=== PATIENT | male | born 1945 | race Caucasian/White ===

== ENCOUNTER → 2018-01-10 | Day surgery (SDC) | payer OTHER ==
[2018-01-07 13:51] VITALS: BMI 26.0
[~2018-01-10] VITALS: Ht 185.4 cm; Wt 90.9 kg
[~2018-01-10] MED LIST: ASPI81TA28 PO; ATOR-22 PO; ATROPINE SULFATE 0.1 MG/ML 5ML SYR IV PRN; ENDOSCOPIC MARKER 5 ML SYR ONE; EpHEDrine SULFATE INJ 50 MG/ML AMP IV PRN; LIDOCAINE HCL 2% 2 ML VIAL (20MG/ML) ONE; LISI-461 PO; METO25TA56 PO; SODIUM CHLORIDE 0.9% 500ML 500 ML IV ONE
[2018-01-10 09:12] VITALS: Ht 185.4 cm; Wt 90.9 kg
--- NOTE | 2018-01-10 09:30 | Endo History and Physical ---
History & Physical Date of Service: Jan 10, 2018. Chief Complaint: ABNORMAL FINDINGS ON DIAGNOSTIC IMAGING OF ABDOMEN REGION Referring Physician: DR MERLE KNOWLES History of Present Illness 72 yo CM who presents for colonoscopy secondary to abnormal abdominal CT scan. Past Surgical History Hx Cardiac Surgery: Yes (heart cath with one stent) Hx Internal Defibrillator: No Hx Pacemaker: No Hx Abdominal Surgery: Yes (appy, hernia repair) Hx of Implantable Prosthesis: No Hx Post-Op Nausea and Vomiting: No Hx Cancer Surgery: No Hx Thoracic Surgery: No Hx Orthopedic: Yes (right and left eloise(x2), left shoulder rcr) Hx Urinary Tract Surgery: No Family History None Social History Smoking Status: Never Smoker Hx Substance Use: No Hx Alcohol Use: Yes (1 -2 DRINKS DAILY) Allergies Coded Allergies: No Known Allergies (Unverified , 01/10/18) Current Medications Reported Home Medications Medications Dose Route/Sig Max Daily Dose Days Date Category Aspirin Ec (Aspirin) 81 Mg Tab 81 Mg PO DAILY 01/07/18 Reported Zestril (Lisinopril) 10 Mg Tab 10 Mg PO QAM 01/07/18 Reported Lipitor (Atorvastatin Calcium) 20 Mg Tab 20 Mg PO HS 01/07/18 Reported Lopressor (Metoprolol Tartrate) 25 Mg Tab 25 Mg PO BID 01/07/18 Reported Vital Signs Weight (Kilograms): 90.91 Height (Feet): 6 Height (Inches): 1 Date Time Temp Pulse Resp B/P (MAP) Pulse Ox O2 Delivery O2 Flow Rate FiO2 01/10/18 09:11 36.6 64 18 162/81 (108) 98 Room Air Physical Exam General Appearance: WD/WN, no apparent distress Respiratory/Chest: Auscultation: breath sounds normal Cardiovascular: Heart Auscultation: RRR Abdomen: Bowel Sounds: normal Inspection & Palpation: soft, non-distended, no tenderness, guarding & rebound Assessment and Plan Assessment: 72 yo CM who presents for colonoscopy secondary to abnormal abdominal CT scan. Plan: Proceed with colonoscopy.
--- NOTE | 2018-01-10 10:01 | GI REPORT ---
Procedure Date: 01/10/2018 9:37 AM Procedure: Colonoscopy Indications: Abnormal CT of the GI tract Medicines: Monitored Anesthesia Care Complications: No immediate complications. Estimated Blood Loss: Estimated blood loss: none. Procedure: Pre-Anesthesia Assessment: - Prior to the procedure, a History and Physical was performed, and patient medications and allergies were reviewed. The patient's tolerance of previous anesthesia was also reviewed. The risks and benefits of the procedure and the sedation options and risks were discussed with the patient. All questions were answered, and informed consent was obtained. Prior Anticoagulants: The patient has taken aspirin, last dose was day of procedure. ASA Grade Assessment: III - A patient with severe systemic disease. After reviewing the risks and benefits, the patient was deemed in satisfactory condition to undergo the procedure. After I obtained informed consent, the scope was passed under direct vision. Throughout the procedure, the patient's blood pressure, pulse, and oxygen saturations were monitored continuously. The scope was introduced through the anus and advanced to the terminal ileum. The colonoscopy was performed without difficulty. The patient tolerated the procedure well. The quality of the bowel preparation was good. The terminal ileum, ileocecal valve, appendiceal orifice, and rectum were photographed. Findings: The perianal and digital rectal examinations were normal. An infiltrative partially obstructing large mass was found in the ascending colon. The mass was circumferential. In addition, its diameter measured thirty mm. Oozing was present. Area was tattooed with an injection of 5 mL of Renu ink. Biopsies were taken with a cold forceps for histology. Non-bleeding internal hemorrhoids were found during retroflexion. The hemorrhoids were medium-sized. 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 Tattooed. Biopsied. - Non-bleeding internal hemorrhoids. Recommendation: - Resume previous diet. - Continue present medications. - Repeat colonoscopy date to be determined after pending pathology results are reviewed for surveillance based on pathology results. - Refer to a surgeon at appointment to be scheduled. - Return to primary care physician as previously scheduled. Ernesto Wayne DO 01/10/2018 10:00:51 AM This report has been signed electronically. Note Initiated On: 01/10/2018 9:37 AM I attest to the content of the Intraoperative Record and orders documented therein, exceptions below
--- NOTE | 2018-01-10 10:02 | Discharge Instructions ---
Endoscopy Patient Instructions Date / Procedure(s) Performed Jan 10, 2018. Colonoscopy Allergy Information Coded Allergies: No Known Allergies (Unverified , 01/10/18) Discharge Date / Findings Jan 10, 2018. Ascending colon mass s/p biopsies and Renu Ink Tattoo Internal hemorrhoids Medication Instructions Stopped Medication(s): TAKES ASPIRIN DAILY- LAST DOSE 01/10/18 OK to resume all medications today as prescribed Reported Home Medications Medications Dose Route/Sig Max Daily Dose Days Date Category Aspirin Ec (Aspirin) 81 Mg Tab 81 Mg PO DAILY 01/07/18 Reported Zestril (Lisinopril) 10 Mg Tab 10 Mg PO QAM 01/07/18 Reported Lipitor (Atorvastatin Calcium) 20 Mg Tab 20 Mg PO HS 01/07/18 Reported Lopressor (Metoprolol Tartrate) 25 Mg Tab 25 Mg PO BID 01/07/18 Reported Provider Instructions Activity Restrictions - No exercising or heavy lifting for 24 hours. - Do not drink alcohol the day of the procedure. - Do not drive a car or operate machinery until the day after the procedure. - Do not make any important decisions or sign important papers in 24 hours after the procedure. Following Day: - Return to full activity which may include returning to work/school. Diet Start your diet with liquids and light foods (jello, soup, juice, toast). Then eat your usual diet if not nauseated. Treatment For Common After Affects For mild abdominal pain, bloating, or excessive gas: - Rest - Eat lightly - Lie on right side Follow-Up Information Follow-up with DR MERLE KNOWLES as scheduled Anesthesia Information What You Should Know You have had a procedure that required some medicine to reduce anxiety and discomfort. This treatment is called moderate sedation. After receiving the treatment, you may be sleepy, but you will be able to breathe on your own. The effects of the treatment may last for several hours. Follow these instructions along with Activity/Diet recommendations noted above: * Do NOT do anything where dizziness or clumsiness would be dangerous. * Rest quietly at home today, then you can be up and about tomorrow. * Have a responsible person stay with you the rest of today. * You may have had an I.V. today. If so, you may take the dressing off later today. Recommendations Call your doctor if: * Trouble breathing * Continuous vomiting for more than 24 hours * Temperature above 101 degrees * Severe abdominal pain or bloating * Pain not relieved by pain medicine ordered * There is increased drainage or redness from any incision * A large amount of rectal bleeding greater than 2-3 tablespoons. (If you had a polyp/s removed or have hemorrhoids, a small amount of blood - from the rectum is to be expected.) * You have any unanswered questions or concerns. IN THE EVENT OF A SERIOUS EMERGENCY, GO TO THE NEAREST EMERGENCY ROOM Your discharge instructions were prepared by provider Ernesto Wayne. Patient Instructions Signature Page Savage Blackwell Patient (or Guardian) Signature/Date: I have read and understand the instructions given to me by my caregivers. Caregiver/RN/Doctor Signature/Date: The above-named patient and/or guardian has received patient instructions on this date. + Original Patient Signature Page (only) stays with chart. Please make copy for patient.
--- NOTE | 2018-01-10 10:19 | Anesthesiology Progress Note ---
Anesthesia Post Op Note Date & Time Jan 10, 2018 at 10:19 Vital Signs Pain Intensity: 0 Vital Signs Past 12 Hours Date Time Temp Pulse Resp B/P (MAP) Pulse Ox O2 Delivery O2 Flow Rate FiO2 01/10/18 10:15 63 98 98/59 (72) 95 Room Air 01/10/18 10:00 36.0 69 16 96/54 (68) 94 Room Air 01/10/18 09:11 36.6 64 18 162/81 (108) 98 Room Air Notes Mental Status: alert / awake / arousable, participated in evaluation Pt Amnestic to Procedure: Yes Nausea / Vomiting: adequately controlled Pain: adequately controlled Airway Patency, RR, SpO2: stable & adequate BP & HR: stable & adequate Hydration State: stable & adequate Anesthetic Complications: no major complications apparent
[2018-01-10 10:30] VITALS: BP 132/65; PULSE 56; O2SAT 98
[2018-01-10 12:21] LABS: BASO % 0.5 %; BASO ABS # 0.03 K/uL (0-0.2); EOS % 3.4 %; EOS ABS # 0.22 K/uL (0-0.5); HEMATOCRIT 39.8 % (42-52); HEMOGLOBIN 13.3 g/dL (14.0-18.0); IG# 0.02 K/uL (0.00-0.02); LYMPH % 23.5 %; MEAN CELL VOLUME 101.5 fL (80-100); MEAN CORPUSCULAR HEMOGLOBIN 33.9 pg (25-34); MEAN CORPUSCULAR HGB CONC 33.4 g/dl (32-36); MEAN PLATELET VOLUME 9.2 fL (7.4-10.4); MONO % 8.5 %; MONO ABS # 0.54 K/uL (0.11-0.59); NEUT % 63.8 %; NEUT ABS # 4.08 K/uL (1.4-6.5); PLATELET COUNT 283 K/uL (130-400); RED CELL DISTRIBUTION WIDTH CV 13.3 % (11.5-14.5); RED CELL DISTRIBUTION WIDTH SD 48.8 fL (36.4-46.3); WHITE BLOOD COUNT 6.39 K/uL (4.8-10.8)
[2018-01-10 12:42] LABS: ALBUMIN 3.5 gm/dl (3.4-5.0); CALCIUM 9.1 mg/dl (8.5-10.1); CREATININE 1.04 mg/dl (0.60-1.40); POTASSIUM 4.4 mmol/L (3.5-5.1)
[2018-01-10 12:44] LABS: TOTAL PROTEIN 7.1 gm/dl (6.4-8.2)
== END | disposition home or self-care (01) ==
LOC: C.GI 08:41
PROVIDERS: ATTEND Internal Medicine
DX: C18.2 Malignant neoplasm of ascending colon (principal); R93.5 Abnormal findings on diagnostic imaging of other abdominal regions, including retroperitoneum; K64.8 Other hemorrhoids; Z95.5 Presence of coronary angioplasty implant and graft; Z96.643 Presence of artificial hip joint, bilateral; Z79.82 Long term (current) use of aspirin; Z79.899 Other long term (current) drug therapy

== ENCOUNTER → 2018-01-12 | Outpatient (CLI) | payer OTHER ==
[~2018-01-12] MED LIST changes: -ATROPINE SULFATE 0.1 MG/ML 5ML SYR IV PRN; -ENDOSCOPIC MARKER 5 ML SYR ONE; -EpHEDrine SULFATE INJ 50 MG/ML AMP IV PRN; -LIDOCAINE HCL 2% 2 ML VIAL (20MG/ML) ONE; +OPTIRAY 320 IV PRN; -SODIUM CHLORIDE 0.9% 500ML 500 ML IV ONE
--- NOTE | 2018-01-12 13:54 | DIAGNOSTIC IMAGING REPORT ---
CT OF THE CHEST WITH IV CONTRAST CLINICAL HISTORY: Mass of colon. COMPARISON STUDY: No previous studies for comparison. TECHNIQUE: Following IV administration of 83 mL of Optiray-320, helical axial images of the chest were obtained. Sagittal and coronal reconstructions were viewed as well as maximal intensity projections on an independent 3-D workstation. A dose lowering technique was utilized adhering to the principles of ALARA. CT DOSE: 695.77 mGycm FINDINGS: No enlarged axillary, mediastinal or hilar lymph nodes are present. The size of the heart is normal. There is moderate coronary artery calcification. There is no pericardial effusion. There are no suspicious pulmonary nodules. Linear opacities reflect atelectasis or scarring. There is no consolidation. No pneumothorax or pleural effusion is noted. A few tiny perifissural nodules along the left major fissure are benign. No suspicious osseous lesion is present. Visualized portions of the upper abdomen are unremarkable. IMPRESSION: 1. No evidence of metastatic disease within the chest. 2. Moderate coronary artery calcification. Electronically signed by: Donny Palacios M.D. 01/12/2018 1:52 PM Dictated Date/Time: 01/12/2018 1:32 PM
== END | disposition home or self-care (01) ==
LOC: C.CTS 12:57
PROVIDERS: ATTEND Internal Medicine
DX: K63.9 Disease of intestine, unspecified (principal)

== ENCOUNTER → 2018-01-19 | Outpatient (CLI) | payer OTHER ==
[~2018-01-19] MED LIST changes: -OPTIRAY 320 IV PRN
== END | disposition home or self-care (01) ==
LOC: C.CPL 11:41
PROVIDERS: ATTEND Surgery
DX: Z01.810 Encounter for preprocedural cardiovascular examination (principal)

== ENCOUNTER 2018-01-25 07:41 | Inpatient (IN) | payer OTHER ==
[2018-01-21 12:04] VITALS: Ht 188 cm; Wt 92.0 kg
[~2018-01-25] VITALS: Ht 188 cm; Wt 92.0 kg
[2018-01-25] VITALS (9 sets, daily range): BP systolic 126–156; BP diastolic 69–84; PULSE 72–84; TEMP 36.4–36.7; O2SAT 93–98
[~2018-01-25 07:41] MED LIST changes: +ACETAMINOPHEN 1000 MG/100 ML IV IV ONE; +CEFAZOLIN 2000MG IV PUSH 15 ML IV SCH; +HEPARIN SOD 5000 UNIT/0.5 ML CARP SQ SCH; +LACTATED RINGER'S 1000ML 1,000 ML IV SCH
[2018-01-25] MEDS ORDERED: FENTANYL CITRATE INJ 50 MCG/1 ML 2 ML VIAL IV PRN (09:00)
[2018-01-25] MEDS ORDERED: HYDROmorphone INJ 1 MG/ML SYR IV PRN (09:00)
[2018-01-25] MEDS ORDERED: EpHEDrine SULFATE INJ 50 MG/ML AMP IV PRN (09:00)
[2018-01-25] MEDS ORDERED: ONDANSETRON INJ 2 MG/ML 2 ML VIAL IV PRN (09:00)
[2018-01-25] MEDS ORDERED: ATROPINE SULFATE 0.1 MG/ML 5ML SYR IV PRN (09:00)
[2018-01-25] MEDS ORDERED: DEXAMETHASONE SOD INJ 4 MG/ML VIAL ONE (09:57)
[2018-01-25] MEDS ORDERED: PROPOFOL IV EMULSION 10 MG/ML 20 ML VIAL IV ONE (09:57)
[2018-01-25] MEDS ORDERED: LIDOCAINE HCL 2% 2 ML VIAL (20MG/ML) ONE (09:57)
[2018-01-25] MEDS ORDERED: ONDANSETRON INJ 2 MG/ML 2 ML VIAL ONE (09:57)
[2018-01-25] MEDS ORDERED: FENTANYL CITRATE INJ 50 MCG/1 ML 2 ML VIAL ONE ×5 (09:58→14:50)
[2018-01-25] MEDS ORDERED: HYDROmorphone INJ 2 MG/ML SYR/VIAL ONE (09:58)
[2018-01-25] MEDS ORDERED: SODIUM CHLORIDE 0.9% INJ 10 ML VIAL ONE (09:59)
[2018-01-25] MEDS ORDERED: BUPIVACAINE/EPINEPHRINE 0.5% MPF 1:200,000 30 ML VIAL ONE (10:12)
--- NOTE | 2018-01-25 10:30 | History & Physical Bridge Note ---
H&P Re-Evaluation Bridge Note: I have examined the patient, reviewed the History & Physical and in the interval since the performance of the History & Physical I have noted the following changes of clinical significance: No changes noted
[2018-01-25] MEDS ORDERED: KETAMINE HCL INJ 50 MG/ML 10 ML VIAL ONE (11:40)
[2018-01-25] MEDS ORDERED: MIDAZOLAM HCL 1 MG/ML 2ML VIAL ONE (11:41)
[2018-01-25] MEDS ORDERED: LABETALOL HCL IV 5 MG/ML 20ML IV ONE (11:45)
[2018-01-25] MEDS ORDERED: ROCURONIUM BROMIDE 10 MG/ML 5 ML VIAL IV ONE (13:38)
[2018-01-25] MEDS ORDERED: GLYCOPYRROLATE INJ 0.2 MG/ML VIAL ONE (13:39)
[2018-01-25] MEDS ORDERED: NEOSTIGMINE METHYLSULFATE 5 MG/5 ML SYR ONE (13:39)
--- NOTE | 2018-01-25 14:23 | [facility] Post Operative Brief Note ---
Immediate Operative Summary Operative Date Jan 25, 2018. Pre-Operative Diagnosis colon cancer Post-Operative Diagnosis same with umbilical hernia Procedure(s) Performed laparoscopic extended right hemicolectomy; repair of umbilical hernia Surgeon khadijah Sustainability Project Coordinator Surgeon(s) chandni Estimated Blood Loss approx 200 cc Findings Consistent with Post-Op Diagnosis Specimens right colon/cecum/portionof transverse colon Complication(s) none
[2018-01-25] MEDS ORDERED: HydrALAZINE HCL 20 MG/ML VIAL ONE (15:23)
[2018-01-25] MEDS ORDERED: HydrALAZINE HCL 20 MG/ML VIAL IV. ONE (15:30)
--- NOTE | 2018-01-25 15:50 | Anesthesiology Progress Note ---
Anesthesia Post Op Note Date & Time Jan 25, 2018 at 15:49 Vital Signs Pain Intensity: 4 Vital Signs Past 12 Hours Date Time Temp Pulse Resp B/P (MAP) Pulse Ox O2 Delivery O2 Flow Rate FiO2 01/25/18 15:42 149/80 01/25/18 15:39 74 20 01/25/18 15:39 74 20 97 01/25/18 15:37 153/79 01/25/18 15:34 75 23 01/25/18 15:34 75 23 97 01/25/18 15:32 158/102 01/25/18 15:29 74 20 01/25/18 15:29 73 20 98 01/25/18 15:27 168/88 01/25/18 15:24 70 18 97 01/25/18 15:24 70 18 01/25/18 15:22 180/81 01/25/18 15:19 71 10 01/25/18 15:19 71 10 98 01/25/18 15:18 71 18 97 01/25/18 15:18 71 18 01/25/18 15:17 183/96 01/25/18 15:16 81 17 01/25/18 15:16 75 17 89 01/25/18 15:12 199/97 01/25/18 15:11 75 15 98 01/25/18 15:11 74 15 01/25/18 15:07 162/95 01/25/18 15:06 57 18 01/25/18 15:06 69 18 01/25/18 15:05 63 10 01/25/18 15:05 61 10 100 01/25/18 15:01 176/100 01/25/18 15:00 66 18 99 01/25/18 15:00 67 18 01/25/18 14:56 188/105 01/25/18 14:55 76 15 01/25/18 14:55 76 15 100 01/25/18 14:53 182/95 01/25/18 14:50 90 18 01/25/18 14:50 86 18 100 01/25/18 14:49 202/109 01/25/18 14:46 195/100 01/25/18 14:45 86 14 01/25/18 14:45 36.0 82 18 200/110 96 Oxymask 10 01/25/18 14:45 87 14 99 01/25/18 08:19 36.6 72 18 153/78 98 Room Air Notes Mental Status: alert / awake / arousable, participated in evaluation Pt Amnestic to Procedure: Yes Nausea / Vomiting: adequately controlled Pain: adequately controlled Airway Patency, RR, SpO2: stable & adequate BP & HR: stable & adequate Hydration State: stable & adequate Anesthetic Complications: no major complications apparent Doing well. BP better controlled after IV Hydralazine.
[2018-01-25] MEDS: LACTATED RINGER'S 1000ML 1,000 ML IV SCH ×2 (17:30→23:46)
[2018-01-25 17:34] LABS: HEMOGLOBIN 13.2 g/dL (14.0-18.0); MEAN CELL VOLUME 99.5 fL (80-100); MEAN CORPUSCULAR HEMOGLOBIN 33.7 pg (25-34); MEAN CORPUSCULAR HGB CONC 33.8 g/dl (32-36); MEAN PLATELET VOLUME 9.1 fL (7.4-10.4); PLATELET COUNT 276 K/uL (130-400); RED CELL DISTRIBUTION WIDTH CV 12.9 % (11.5-14.5); WHITE BLOOD COUNT 11.68 K/uL (4.8-10.8)
[2018-01-25 17:51] LABS: CREATININE 1.08 mg/dl (0.60-1.40)
[2018-01-25] MEDS: MoRPHine SULFATE 4 MG/ML 1 ML CARP\\VIAL IV PRN ×2 (20:03→22:10)
[2018-01-25] MEDS: METOPROLOL TARTRATE 25 MG TAB PO SCH (21:36)
[2018-01-25] MEDS: ACETAMINOPHEN IV 100 ML IV SCH (21:37)
[2018-01-26 04:01] VITALS: BP 166/77; PULSE 79; TEMP 36.7; O2SAT 94
[2018-01-26] MEDS: ACETAMINOPHEN IV 100 ML IV SCH ×3 (05:35→21:15)
[2018-01-26] MEDS: LACTATED RINGER'S 1000ML 1,000 ML IV SCH ×2 (07:36→16:28)
[2018-01-26 07:38] VITALS: BP 160/70; PULSE 70; TEMP 36.8; O2SAT 95
[2018-01-26] MEDS: METOPROLOL TARTRATE 25 MG TAB PO SCH ×2 (07:44→21:15)
[2018-01-26] MEDS: ENOXAPARIN 40 MG/0.4 ML SYR SQ SCH (07:44)
--- NOTE | 2018-01-26 07:45 | Surgery Progress Note ---
Surgery Progress Note Date of Service Jan 26, 2018. Subjective Post OP Day: 1 + feeling well some gas pain. overall feeling well. has been out of bed ambulating already. Objective Vital Signs: Date Time Temp Pulse Resp B/P (MAP) Pulse Ox O2 Delivery O2 Flow Rate FiO2 01/26/18 07:38 36.8 70 15 160/70 (100) 95 Room Air 01/26/18 04:01 36.7 79 16 166/77 (106) 94 Room Air 01/25/18 23:50 Room Air 01/25/18 22:59 36.7 84 16 126/72 (90) 93 Room Air 01/25/18 21:39 84 126/69 (88) 01/25/18 19:53 36.6 80 18 129/73 (91) 96 Nasal Cannula 2.0 01/25/18 18:50 36.6 83 18 151/78 (102) 94 Nasal Cannula 2.0 01/25/18 17:56 36.4 78 18 137/72 (93) 96 Nasal Cannula 2.0 01/25/18 17:20 36.5 81 18 156/84 (108) 96 Nasal Cannula 2.0 01/25/18 16:50 36.5 76 19 150/77 (101) 95 Nasal Cannula 2.0 01/25/18 16:34 75 22 01/25/18 16:34 75 22 96 01/25/18 16:31 150/75 01/25/18 16:29 67 20 95 01/25/18 16:29 67 20 01/25/18 16:27 151/77 01/25/18 16:24 77 26 01/25/18 16:24 77 26 96 01/25/18 16:21 158/83 01/25/18 16:19 74 23 01/25/18 16:19 73 23 96 01/25/18 16:16 145/84 01/25/18 16:14 77 16 01/25/18 16:14 77 16 97 01/25/18 16:12 140/74 01/25/18 16:09 74 25 01/25/18 16:09 75 25 96 01/25/18 16:08 78 22 01/25/18 16:08 77 22 96 01/25/18 16:07 159/81 01/25/18 16:04 36.3 69 22 140/74 (109) 97 Nasal Cannula 2 01/25/18 16:03 68 23 01/25/18 16:03 68 23 96 01/25/18 16:02 149/118 01/25/18 15:58 73 24 96 01/25/18 15:58 72 24 01/25/18 15:57 152/67 01/25/18 15:53 78 19 01/25/18 15:53 78 19 96 01/25/18 15:52 139/92 01/25/18 15:48 71 24 01/25/18 15:48 71 24 96 01/25/18 15:47 156/79 01/25/18 15:43 64 16 95 01/25/18 15:43 64 16 01/25/18 15:42 149/80 01/25/18 15:39 74 20 01/25/18 15:39 74 20 97 01/25/18 15:37 153/79 01/25/18 15:34 75 23 01/25/18 15:34 75 23 97 01/25/18 15:32 158/102 01/25/18 15:29 74 20 01/25/18 15:29 73 20 98 01/25/18 15:27 168/88 01/25/18 15:24 70 18 97 01/25/18 15:24 70 18 01/25/18 15:22 180/81 01/25/18 15:19 71 10 01/25/18 15:19 71 10 98 01/25/18 15:18 71 18 97 01/25/18 15:18 71 18 01/25/18 15:17 183/96 01/25/18 15:16 81 17 01/25/18 15:16 75 17 89 01/25/18 15:12 199/97 01/25/18 15:11 75 15 98 01/25/18 15:11 74 15 01/25/18 15:10 95 Nasal Cannula 2.0 01/25/18 15:07 162/95 01/25/18 15:06 57 18 01/25/18 15:06 69 18 01/25/18 15:05 63 10 01/25/18 15:05 61 10 100 01/25/18 15:01 176/100 01/25/18 15:00 66 18 99 01/25/18 15:00 67 18 01/25/18 14:56 188/105 01/25/18 14:55 76 15 01/25/18 14:55 76 15 100 01/25/18 14:53 182/95 01/25/18 14:50 90 18 01/25/18 14:50 86 18 100 01/25/18 14:49 202/109 01/25/18 14:46 195/100 01/25/18 14:45 86 14 01/25/18 14:45 36.0 82 18 200/110 96 Oxymask 10 01/25/18 14:45 87 14 99 01/25/18 08:19 36.6 72 18 153/78 98 Room Air Physical Exam: NICOLAS drainage (serous) General Appearance: no apparent distress Abdomen: non distended, soft Incision(s): clean, dry, no erythema Laboratory Results: Results Past 24 Hours Test 01/25/18 17:15 01/26/18 04:44 Range/Units White Blood Count 11.68 4.8-10.8 K/uL Red Blood Count 3.92 4.7-6.1 M/uL Hemoglobin 13.2 14.0-18.0 g/dL Hematocrit 39.0 42-52 % Mean Corpuscular Volume 99.5 80-100 fL Mean Corpuscular Hemoglobin 33.7 25-34 pg Mean Corpuscular Hemoglobin Concent 33.8 32-36 g/dl RDW Standard Deviation 47.0 36.4-46.3 fL RDW Coefficient of Variation 12.9 11.5-14.5 % Platelet Count 276 130-400 K/uL Mean Platelet Volume 9.1 7.4-10.4 fL Prothrombin Time 10.8 9.0-12.0 SECONDS Prothromb Time International Ratio 1.0 0.9-1.1 Creatinine 1.08 0.60-1.40 mg/dl Est Creatinine Clear Calc Drug Dose 70.9 ml/min Estimated GFR () 78.5 Estimated GFR (Non- 67.7 Assessment & Plan colon ca s/p lap right extended hemicolectomy no acute issues so far d/c saenz may have some clears
[2018-01-26 07:50] VITALS: O2SAT 95
[2018-01-26 08:27] LABS: BASO % 0.1 %; BASO ABS # 0.01 K/uL (0-0.2); HEMATOCRIT 33.9 % (42-52); HEMOGLOBIN 11.7 g/dL (14.0-18.0); IG# 0.03 K/uL (0.00-0.02); LYMPH % 10.1 %; LYMPH ABS # 0.99 K/uL (1.2-3.4); MEAN CORPUSCULAR HEMOGLOBIN 34.5 pg (25-34); MEAN CORPUSCULAR HGB CONC 34.5 g/dl (32-36); MONO ABS # 0.88 K/uL (0.11-0.59); NEUT % 80.5 %; NEUT ABS # 7.87 K/uL (1.4-6.5); PLATELET COUNT 267 K/uL (130-400); RED CELL DISTRIBUTION WIDTH CV 13.1 % (11.5-14.5); RED CELL DISTRIBUTION WIDTH SD 47.5 fL (36.4-46.3); WHITE BLOOD COUNT 9.78 K/uL (4.8-10.8)
[2018-01-26 09:00] LABS: CALCIUM 8.3 mg/dl (8.5-10.1); CREATININE 1.11 mg/dl (0.60-1.40); POTASSIUM 4.2 mmol/L (3.5-5.1)
[2018-01-26] MEDS: MoRPHine SULFATE 4 MG/ML 1 ML CARP\\VIAL IV PRN ×2 (10:15→16:27)
--- NOTE | 2018-01-26 11:10 | [facility] Operative Report ---
Operative Report Operative Date Jan 26, 2018. Pre-Operative Diagnosis colon cancer Post-Operative Diagnosis colon cancer; umbilical hernia Procedure(s) Performed Laparoscopic Extended Right Hemicolectomy and Repair of Umbilical Hernia Surgeon Dr. Jr Pearson Forming Fixer Surgeon(s) Ramon Mederos PA-C Estimated Blood Loss 200ml Specimens A.) cecum, right colon, proximal transverse colon Drains NICOLAS into right lower quadrant Anesthesia Type General Complication(s) none Description of Procedure After informed consent was obtained the patient was taken to the operating room and placed in a supine position. After successful intubation a Siddiqui catheter was placed and the left arm was tucked. The patient had a small umbilical hernia. We decided to make a small incision directly above this which we carried down through the soft tissue. I was then able to manually reduce incarcerated preperitoneal fat from the hernia defect and excise it. We then extended the defect slightly using electrocautery. 2 #0 Vicryl stay sutures were placed in the edges of the hernia and the peritoneum was entered using blunt finger penetration and a finger sweep performed. A 12 mm Matthews trocar was placed through the defect and the abdomen insufflated 20 mmHg. The laparoscope was inserted and the abdomen was examined in 360. We saw no gross abnormalities. No evidence of metastatic disease on any of the peritoneal surfaces or liver. I then placed a suprapubic 5 mm trocar as well as a left lower quadrant 12 mm trocar. Eventually I would place an upper midline 5 mm trocar which we would then extend to to deliver the specimen. I began by evaluating the right colon and mobilizing it. We are able to elevate the omentum and find the tattoo ink which was just on the transverse colon side of the hepatic flexure. There was some omentum stuck down in the right lower quadrant which we had to free up using the harmonic scalpel. I also had to free up the terminal small bowel which was stuck to the right lower quadrant sidewall again using a harmonic scalpel and traction/ countertraction. I began by coming up the white line of Toldt laterally on the right colon up to the hepatic flexure. I then divided some of the omentum exposing the transverse colon. I found a place on the hepatic side of the middle colic vessels and create a small window in the mesentery of the transverse colon. A URBANO 60 mm purple stapler was used to transect the colon in this area. I then used a harmonic scalpel to be the begin taking down the mesentery of the transverse colon towards the hepatic flexure. Once visualization became difficult I then went down to the terminal ileum and created a small window in the mesentery of the terminal ileum just proximal to the ileocecal valve and transected this using a brown cartridge URBANO linear stapler. I then used a harmonic scalpel and started on the mesentery of the terminal ileum and right colon and went superiorly until I was able to meet with my previous takedown of the transverse colon mesentery. I did take down some additional attachments to the omentum as well as the gastrocolic ligament which I had to takedown using the harmonic scalpel as well. Eventually I was able to free everything up until the specimen was completely detached. We made a small horizontal incision from the 5 mm trocar in the upper midline and carried this down through the soft tissues electrocautery and opened the fascia. I was then able to deliver the transverse colon right colon cecum and terminal ileum through this incision. I did have to reinsufflate the abdomen to locate the stapled end of the terminal ileum. We delivered this as well as the proximal end of the transverse colon through the small incision. We used a URBANO brown cartridge to create a side-to- side anastomosis from the distal small bowel to the transverse colon. Because it was difficult to elevate the anastomosis out of the wound I decided the hand closed the common enterotomy. I used 3-0 Monocryl in running fashion for serosal/ mucosal layers followed by 3-0 silk as a second layer in simple interrupted fashion. The anastomosis appeared to be open and viable. We then dunked the anastomosis back down into the abdominal cavity. I closed the fascial defect using 0 PDS in a running fashion starting either pole and securing them in the midline. I then reinsufflated the abdomen. We suctioned out any small amount of blood and thoroughly irrigated the upper abdomen. There was no active bleeding. The anastomosis looked widely patent with no evidence of any ischemia. After performing a final irrigation we placed a [address]-Urban drain along the right paracolic gutter and brought it out through one of the trocar sites and secured it to skin using 2-0 nylon. We then removed all the trochars and desufflated the abdomen. We closed the umbilical hernia using 0 Vicryl in interrupted [id number] fashion. All the trocar sites were irrigated and closed using 4-0 Monocryl. Marcaine was injected around them for postoperative analgesia and skin glue used as dressing. The patient was awaken extubated and transferred to recovery in stable condition. My physician's surgical dental assistant was present for the entire procedure. He helped expose the trocar sites for placement. He helped with retraction on the bowel as well as running of the camera throughout the procedure. He also helped with wound closure and dressing placement at the end of the procedure. I attest to the content of the Intraoperative Record and any orders documented therein. Any exceptions are noted below.
[2018-01-26 11:37] VITALS: BP 129/70; PULSE 60; TEMP 36.9; O2SAT 93
[2018-01-26 15:23] VITALS: BP 130/69; PULSE 64; TEMP 36.8; O2SAT 92
[2018-01-26 23:35] VITALS: BP 136/67; PULSE 68; TEMP 37.2; O2SAT 90
[2018-01-27] VITALS (9 sets, daily range): BP systolic 128–172; BP diastolic 72–83; PULSE 64–83; TEMP 36.7–37; O2SAT 84–93
[2018-01-27] MEDS: LACTATED RINGER'S 1000ML 1,000 ML IV SCH (00:38)
[2018-01-27] MEDS: MoRPHine SULFATE 4 MG/ML 1 ML CARP\\VIAL IV PRN ×2 (03:37→07:36)
[2018-01-27] MEDS: ENOXAPARIN 40 MG/0.4 ML SYR SQ SCH (08:40)
--- NOTE | 2018-01-27 08:55 | Surgery Progress Note ---
Surgery Progress Note Date of Service Jan 27, 2018. Subjective Post OP Day: 2 + complaints (pain control marginal), + diet (clears, not much appetite), No flatus, No nausea Objective Vital Signs: Date Time Temp Pulse Resp B/P (MAP) Pulse Ox O2 Delivery O2 Flow Rate FiO2 01/27/18 07:30 Room Air 01/27/18 07:20 37.0 83 16 166/77 (106) 92 Nasal Cannula 1.0 01/27/18 05:43 93 Room Air 01/27/18 04:08 91 Nasal Cannula 01/27/18 04:03 84 Room Air 01/26/18 23:35 37.2 68 16 136/67 (90) 90 Room Air 01/26/18 23:25 Room Air 01/26/18 15:23 36.8 64 18 130/69 (89) 92 Room Air 01/26/18 15:15 Room Air 01/26/18 11:37 36.9 60 14 129/70 (89) 93 Room Air Physical Exam: NICOLAS drainage (280), urine output (450) Abdomen: soft, + distended Laboratory Results: Results Past 24 Hours Test 01/27/18 04:44 Range/Units Assessment & Plan s/p lap right extended colectomy will change to Dilaudid, continue Ofirmev clears sparingly, bowel function not yet returning on Lovenox labs pending
[2018-01-27] MEDS: METOPROLOL TARTRATE 25 MG TAB PO SCH ×2 (09:02→20:30)
[2018-01-27 10:04] LABS: BASO % 0.2 %; BASO ABS # 0.02 K/uL (0-0.2); EOS % 0.3 %; EOS ABS # 0.04 K/uL (0-0.5); HEMATOCRIT 38.8 % (42-52); HEMOGLOBIN 13.1 g/dL (14.0-18.0); IG# 0.02 K/uL (0.00-0.02); LYMPH % 12.7 %; LYMPH ABS # 1.49 K/uL (1.2-3.4); MEAN CELL VOLUME 100.8 fL (80-100); MEAN CORPUSCULAR HGB CONC 33.8 g/dl (32-36); MONO ABS # 0.82 K/uL (0.11-0.59); NEUT % 79.6 %; NEUT ABS # 9.32 K/uL (1.4-6.5); PLATELET COUNT 285 K/uL (130-400); RED CELL DISTRIBUTION WIDTH CV 13.4 % (11.5-14.5); WHITE BLOOD COUNT 11.71 K/uL (4.8-10.8)
[2018-01-27 10:34] LABS: CALCIUM 8.8 mg/dl (8.5-10.1); POTASSIUM 3.9 mmol/L (3.5-5.1)
[2018-01-27] MEDS: ACETAMINOPHEN IV 1,000 MG in EMPTY BAG 0 ML IV SCH ×2 (10:35→18:13)
[2018-01-27] MEDS: D5W AND 1/2NSS + 20MEQ KCL 1,000 ML IV SCH ×2 (10:35→18:15)
--- NOTE | 2018-01-27 15:31 | Anesthesiology Progress Note ---
Anesthesia Post Op Note Date & Time Jan 27, 2018 at 15:30 Vital Signs Pain Intensity: 7.0 Vital Signs Past 12 Hours Date Time Temp Pulse Resp B/P (MAP) Pulse Ox O2 Delivery O2 Flow Rate FiO2 01/27/18 14:34 75 128/75 (92) 01/27/18 07:30 Room Air 01/27/18 07:20 37.0 83 16 166/77 (106) 92 Nasal Cannula 1.0 01/27/18 05:43 93 Room Air 01/27/18 04:08 91 Nasal Cannula 01/27/18 04:03 84 Room Air Notes Mental Status: alert / awake / arousable, participated in evaluation Pt Amnestic to Procedure: Yes Nausea / Vomiting: adequately controlled Pain: adequately controlled Airway Patency, RR, SpO2: stable & adequate BP & HR: stable & adequate Hydration State: stable & adequate Anesthetic Complications: no major complications apparent This post-op visit was made on January 26, 2018 @ 07:30 AM
[2018-01-27] MEDS: HYDROmorphone INJ 2 MG/ML SYR/VIAL IV PRN ×2 (17:15→23:07)
[2018-01-28] MEDS: D5W AND 1/2NSS + 20MEQ KCL 1,000 ML IV SCH ×3 (02:19→22:59)
[2018-01-28] MEDS: ACETAMINOPHEN IV 1,000 MG in EMPTY BAG 0 ML IV SCH (02:19)
[2018-01-28] MEDS: HYDROmorphone INJ 2 MG/ML SYR/VIAL IV PRN ×6 (05:43→23:04)
[2018-01-28 07:10] VITALS: BP 154/83; PULSE 71; TEMP 36.8; O2SAT 93
[2018-01-28 08:13] LABS: BASO % 0.2 %; BASO ABS # 0.02 K/uL (0-0.2); EOS % 2.2 %; EOS ABS # 0.21 K/uL (0-0.5); HEMATOCRIT 39.1 % (42-52); HEMOGLOBIN 13.1 g/dL (14.0-18.0); IG# 0.02 K/uL (0.00-0.02); LYMPH % 15.5 %; LYMPH ABS # 1.48 K/uL (1.2-3.4); MEAN CELL VOLUME 101.3 fL (80-100); MEAN CORPUSCULAR HEMOGLOBIN 33.9 pg (25-34); MEAN CORPUSCULAR HGB CONC 33.5 g/dl (32-36); MEAN PLATELET VOLUME 8.9 fL (7.4-10.4); MONO % 8.5 %; MONO ABS # 0.81 K/uL (0.11-0.59); NEUT % 73.4 %; NEUT ABS # 7.02 K/uL (1.4-6.5); PLATELET COUNT 273 K/uL (130-400); RED CELL DISTRIBUTION WIDTH CV 13.1 % (11.5-14.5); RED CELL DISTRIBUTION WIDTH SD 48.3 fL (36.4-46.3); WHITE BLOOD COUNT 9.56 K/uL (4.8-10.8)
[2018-01-28 08:43] LABS: CALCIUM 8.3 mg/dl (8.5-10.1); CREATININE 0.89 mg/dl (0.60-1.40); POTASSIUM 3.7 mmol/L (3.5-5.1)
[2018-01-28] MEDS: METOPROLOL TARTRATE 25 MG TAB PO SCH ×2 (09:32→21:18)
[2018-01-28] MEDS: ENOXAPARIN 40 MG/0.4 ML SYR SQ SCH (09:34)
--- NOTE | 2018-01-28 09:59 | Surgery Progress Note ---
Surgery Progress Note Date of Service Jan 28, 2018. Subjective Post OP Day: 3 feeling better each day. no bm yet but feels " bowels rumbling" pain better controlled today. Objective Vital Signs: Date Time Temp Pulse Resp B/P (MAP) Pulse Ox O2 Delivery O2 Flow Rate FiO2 01/28/18 07:30 Room Air 01/28/18 07:10 36.8 71 16 154/83 (106) 93 Room Air 01/27/18 23:51 Room Air 01/27/18 22:55 36.7 64 16 152/83 (106) 93 Room Air 01/27/18 22:08 66 150/83 (105) 01/27/18 20:28 66 172/72 (105) 01/27/18 15:55 Room Air 01/27/18 15:45 37.0 66 17 140/76 (97) 92 Room Air 01/27/18 14:34 75 128/75 (92) General Appearance: no apparent distress Respiratory/Chest: no respiratory distress, no accessory muscle use Abdomen: non distended, soft Incision(s): clean, dry, intact, no erythema Laboratory Results: Results Past 24 Hours Test 01/28/18 07:36 Range/Units White Blood Count 9.56 4.8-10.8 K/uL Red Blood Count 3.86 4.7-6.1 M/uL Hemoglobin 13.1 14.0-18.0 g/dL Hematocrit 39.1 42-52 % Mean Corpuscular Volume 101.3 80-100 fL Mean Corpuscular Hemoglobin 33.9 25-34 pg Mean Corpuscular Hemoglobin Concent 33.5 32-36 g/dl Platelet Count 273 130-400 K/uL Mean Platelet Volume 8.9 7.4-10.4 fL Neutrophils (%) (Auto) 73.4 % Lymphocytes (%) (Auto) 15.5 % Monocytes (%) (Auto) 8.5 % Eosinophils (%) (Auto) 2.2 % Basophils (%) (Auto) 0.2 % Neutrophils # (Auto) 7.02 1.4-6.5 K/uL Lymphocytes # (Auto) 1.48 1.2-3.4 K/uL Monocytes # (Auto) 0.81 0.11-0.59 K/uL Eosinophils # (Auto) 0.21 0-0.5 K/uL Basophils # (Auto) 0.02 0-0.2 K/uL RDW Standard Deviation 48.3 36.4-46.3 fL RDW Coefficient of Variation 13.1 11.5-14.5 % Immature Granulocyte % (Auto) 0.2 % Immature Granulocyte # (Auto) 0.02 0.00-0.02 K/uL Sodium Level 135 136-145 mmol/L Potassium Level 3.7 3.5-5.1 mmol/L Chloride Level 104 98-107 mmol/L Carbon Dioxide Level 27 21-32 mmol/L Anion Gap 4.0 3-11 mmol/L Blood Urea Nitrogen 8 7-18 mg/dl Creatinine 0.89 0.60-1.40 mg/dl Est Creatinine Clear Calc Drug Dose 86.0 ml/min Estimated GFR () 98.3 Estimated GFR (Non- 84.8 BUN/Creatinine Ratio 9.2 10-20 Random Glucose 92 70-99 mg/dl Calcium Level 8.3 8.5-10.1 mg/dl Assessment & Plan 01/28/18 doing as expected awaiting bowel fx pain controlled path pending Dr. Mccullough covering for weekend. 01/27/18 colon ca s/p lap right extended hemicolectomy no acute issues so far d/c saenz may have some clears colon ca s/p lap right extended hemicolectomy no acute issues so far d/c saenz may have some clears
[2018-01-28] MEDS: ONDANSETRON INJ 2 MG/ML 2 ML VIAL IV PRN (10:40)
[2018-01-28 15:02] VITALS: BP 148/86; PULSE 93; TEMP 36.8; O2SAT 95
[2018-01-28 21:16] VITALS: BP 157/88; PULSE 98
[2018-01-28 22:53] VITALS: BP 157/82; PULSE 75; TEMP 36.8; O2SAT 95
[2018-01-29] MEDS: ONDANSETRON INJ 2 MG/ML 2 ML VIAL IV PRN (04:18)
--- NOTE | 2018-01-29 06:25 | Surgery Progress Note ---
Surgery Progress Note Date of Service Jan 29, 2018. Subjective just had Lg formed bm and is tolerating clear liquids minimal pain Objective Vital Signs: Date Time Temp Pulse Resp B/P (MAP) Pulse Ox O2 Delivery O2 Flow Rate FiO2 01/29/18 00:05 Room Air 01/28/18 22:53 36.8 75 16 157/82 (107) 95 Room Air 01/28/18 21:16 98 157/88 (111) 01/28/18 15:15 Room Air 01/28/18 15:02 36.8 93 18 148/86 (106) 95 Room Air 01/28/18 07:30 Room Air 01/28/18 07:10 36.8 71 16 154/83 (106) 93 Room Air General Appearance: no apparent distress Respiratory/Chest: no respiratory distress (mild distention, some bowel sounds) Incision(s): intact Laboratory Results: Results Past 24 Hours Test 01/28/18 07:36 Range/Units White Blood Count 9.56 4.8-10.8 K/uL Red Blood Count 3.86 4.7-6.1 M/uL Hemoglobin 13.1 14.0-18.0 g/dL Hematocrit 39.1 42-52 % Mean Corpuscular Volume 101.3 80-100 fL Mean Corpuscular Hemoglobin 33.9 25-34 pg Mean Corpuscular Hemoglobin Concent 33.5 32-36 g/dl Platelet Count 273 130-400 K/uL Mean Platelet Volume 8.9 7.4-10.4 fL Neutrophils (%) (Auto) 73.4 % Lymphocytes (%) (Auto) 15.5 % Monocytes (%) (Auto) 8.5 % Eosinophils (%) (Auto) 2.2 % Basophils (%) (Auto) 0.2 % Neutrophils # (Auto) 7.02 1.4-6.5 K/uL Lymphocytes # (Auto) 1.48 1.2-3.4 K/uL Monocytes # (Auto) 0.81 0.11-0.59 K/uL Eosinophils # (Auto) 0.21 0-0.5 K/uL Basophils # (Auto) 0.02 0-0.2 K/uL RDW Standard Deviation 48.3 36.4-46.3 fL RDW Coefficient of Variation 13.1 11.5-14.5 % Immature Granulocyte % (Auto) 0.2 % Immature Granulocyte # (Auto) 0.02 0.00-0.02 K/uL Sodium Level 135 136-145 mmol/L Potassium Level 3.7 3.5-5.1 mmol/L Chloride Level 104 98-107 mmol/L Carbon Dioxide Level 27 21-32 mmol/L Anion Gap 4.0 3-11 mmol/L Blood Urea Nitrogen 8 7-18 mg/dl Creatinine 0.89 0.60-1.40 mg/dl Est Creatinine Clear Calc Drug Dose 86.0 ml/min Estimated GFR () 98.3 Estimated GFR (Non- 84.8 BUN/Creatinine Ratio 9.2 10-20 Random Glucose 92 70-99 mg/dl Calcium Level 8.3 8.5-10.1 mg/dl Assessment & Plan 01/29/18- recovering bowel function- will adv to full liquids. Ambulate check lytes
[2018-01-29 07:30] VITALS: BP 128/79; PULSE 92; TEMP 36.6; O2SAT 97
[2018-01-29 07:33] LABS: CALCIUM 8.6 mg/dl (8.5-10.1); CREATININE 0.91 mg/dl (0.60-1.40); PHOSPHORUS 2.8 mg/dl (2.5-4.9); POTASSIUM 4.3 mmol/L (3.5-5.1)
[2018-01-29] MEDS ORDERED: NURSING VERBAL MED ORDER ONE (07:45)
[2018-01-29] MEDS ORDERED: PROMETHAZINE HCL INJ 12.5 MG in SODIUM CHLORIDE 0.9% 50ML 50 ML IV PRN (08:00)
[2018-01-29] MEDS ORDERED: PROMETHAZINE HCL INJ 25 MG in SODIUM CHLORIDE 0.9% 50ML 50 ML IV PRN (08:00)
[2018-01-29] MEDS: ENOXAPARIN 40 MG/0.4 ML SYR SQ SCH (08:56)
[2018-01-29] MEDS ORDERED: HYDROCODONE/ACETAMIN 5/325MG TAB PO PRN (10:00)
[2018-01-29] MEDS: METOPROLOL TARTRATE 25 MG TAB PO SCH ×2 (10:53→20:42)
[2018-01-29] MEDS: D5W AND 1/2NSS + 20MEQ KCL 1,000 ML IV SCH ×2 (11:30→23:21)
[2018-01-29] MEDS: HYDROCODONE/ACETAMIN 5/325MG TAB PO PRN ×3 (13:15→23:26)
[2018-01-29 14:58] VITALS: BP 130/77; PULSE 92; TEMP 36.9; O2SAT 97
[2018-01-29] MEDS: HYDROmorphone INJ 0.5 MG/0.5 ML SYR IV PRN (20:08)
[2018-01-29 23:05] VITALS: BP 138/77; PULSE 65; TEMP 36.5; O2SAT 97
--- NOTE | 2018-01-30 05:58 | Surgery Progress Note ---
Surgery Progress Note Date of Service Jan 30, 2018. Subjective feeling a little better- had small emesis yest am had loose bm later in day Objective Vital Signs: Date Time Temp Pulse Resp B/P (MAP) Pulse Ox O2 Delivery O2 Flow Rate FiO2 01/29/18 23:25 Room Air 01/29/18 23:05 36.5 65 16 138/77 (97) 97 Room Air 01/29/18 15:35 Room Air 01/29/18 14:58 36.9 92 18 130/77 (94) 97 Room Air 01/29/18 07:30 36.6 92 16 128/79 (95) 97 Room Air 01/29/18 07:30 Room Air General Appearance: no apparent distress Respiratory/Chest: no respiratory distress Abdomen: + pertinent finding (mild distention, has some bowel sounds) Incision(s): intact Laboratory Results: Results Past 24 Hours Test 01/29/18 06:36 01/30/18 05:47 Range/Units Sodium Level 134 136-145 mmol/L Potassium Level 4.3 3.5-5.1 mmol/L Chloride Level 102 98-107 mmol/L Carbon Dioxide Level 25 21-32 mmol/L Anion Gap 7.0 3-11 mmol/L Blood Urea Nitrogen 8 7-18 mg/dl Creatinine 0.91 0.60-1.40 mg/dl Est Creatinine Clear Calc Drug Dose 84.1 ml/min Estimated GFR () 96.6 Estimated GFR (Non- 83.3 BUN/Creatinine Ratio 9.2 10-20 Random Glucose 115 70-99 mg/dl Calcium Level 8.6 8.5-10.1 mg/dl Phosphorus Level 2.8 2.5-4.9 mg/dl Magnesium Level 2.0 1.8-2.4 mg/dl Assessment & Plan 01/30/18- may have mild ileus- appears to be improving cont clear liquids for now, add Senna syrup encourage ambulation- will likely need 1-2 more days in hospital 01/29/18- recovering bowel function- will adv to full liquids. Ambulate check lytes 01/29/18- recovering bowel function- will adv to full liquids. Ambulate check lytes
[2018-01-30] MEDS: HYDROCODONE/ACETAMIN 5/325MG TAB PO PRN ×3 (06:25→19:33)
[2018-01-30 06:27] LABS: CREATININE 0.89 mg/dl (0.60-1.40); PHOSPHORUS 3.1 mg/dl (2.5-4.9); POTASSIUM 4.4 mmol/L (3.5-5.1)
[2018-01-30 07:21] VITALS: BP 130/72; PULSE 68; TEMP 36.8; O2SAT 93
[2018-01-30] MEDS: SENNA 8.6 MG TAB PO SCH ×2 (07:27→21:25)
[2018-01-30] MEDS: ENOXAPARIN 40 MG/0.4 ML SYR SQ SCH (07:27)
[2018-01-30] MEDS: METOPROLOL TARTRATE 25 MG TAB PO SCH ×2 (07:27→21:25)
[2018-01-30 07:40] VITALS: O2SAT 93
[2018-01-30] MEDS: HYDROmorphone INJ 0.5 MG/0.5 ML SYR IV PRN ×3 (10:09→23:02)
[2018-01-30] MEDS: D5W AND 1/2NSS + 20MEQ KCL 1,000 ML IV SCH ×2 (11:35→23:25)
[2018-01-30 15:11] VITALS: BP 153/75; PULSE 68; TEMP 37.3; O2SAT 93
[2018-01-30 23:09] VITALS: BP 130/71; PULSE 89; TEMP 37.6; O2SAT 93
[2018-01-31] MEDS: HYDROCODONE/ACETAMIN 5/325MG TAB PO PRN ×2 (03:43→10:35)
--- NOTE | 2018-01-31 06:53 | Surgery Progress Note ---
Surgery Progress Note Date of Service Jan 31, 2018. Subjective + feeling well, + complaints (Still having some incision tenderness ), + ambulating, + pain controlled, + diet (Tolerating full liquids), No bowel movement, No flatus, No nausea, No vomiting Patient did have some diarrhea wednesday but reports no flatus or BM since then. Objective Vital Signs: Date Time Temp Pulse Resp B/P (MAP) Pulse Ox O2 Delivery O2 Flow Rate FiO2 01/30/18 23:25 Room Air 01/30/18 23:09 37.6 89 18 130/71 (90) 93 Room Air 01/30/18 15:25 Room Air 01/30/18 15:11 37.3 68 18 153/75 (101) 93 Room Air 01/30/18 07:40 93 Room Air 01/30/18 07:21 36.8 68 18 130/72 (91) 93 Room Air Physical Exam: NICOLAS drainage (100ml so far this AM, serosang) General Appearance: WD/WN, no apparent distress Head: normocephalic, atraumatic Respiratory/Chest: no respiratory distress, no accessory muscle use Abdomen: no organomegaly, no pulsatile mass, + distended (moderate), + tenderness (moderate incisional tenderness) Incision(s): clean, dry, intact, no erythema, no drainage Laboratory Results: Results Past 24 Hours Test 01/31/18 04:44 Range/Units Assessment & Plan POD # 6 s/p Laparoscopic Extended Right Hemicolectomy and Repair of Umbilical Hernia. Incisional tenderness and moderate abdominal distention, feels pain is improving. Tolerating full liquids, No N/V. Urinating okay. No BM/Flatus since Wednesday - likely post-op ileus. Continue NICOLAS, full liquids, Senokot Tabs, ambulation. May consider KUB to evaluate ileus if he does not progress. Will discuss findings with Dr. Pearson. Please contact with questions or concerns.
[2018-01-31 07:18] VITALS: BP 147/76; PULSE 69; TEMP 36.9; O2SAT 94
[2018-01-31 07:23] LABS: HEMATOCRIT 35.3 % (42-52); HEMOGLOBIN 12.2 g/dL (14.0-18.0); MEAN CELL VOLUME 100.3 fL (80-100); MEAN CORPUSCULAR HEMOGLOBIN 34.7 pg (25-34); MEAN CORPUSCULAR HGB CONC 34.6 g/dl (32-36); PLATELET COUNT 278 K/uL (130-400); RED CELL DISTRIBUTION WIDTH CV 12.9 % (11.5-14.5); RED CELL DISTRIBUTION WIDTH SD 46.9 fL (36.4-46.3); WHITE BLOOD COUNT 8.79 K/uL (4.8-10.8)
[2018-01-31 08:09] LABS: CREATININE 0.84 mg/dl (0.60-1.40)
[2018-01-31] MEDS: SENNA 8.6 MG TAB PO SCH (08:39)
[2018-01-31] MEDS: METOPROLOL TARTRATE 25 MG TAB PO SCH (08:39)
[2018-01-31] MEDS: ENOXAPARIN 40 MG/0.4 ML SYR SQ SCH (08:39)
[2018-01-31 08:53] VITALS: O2SAT 97
[2018-01-31] MEDS: D5W AND 1/2NSS + 20MEQ KCL 1,000 ML IV SCH (12:47)
[2018-01-31] MEDS: HYDROmorphone INJ 0.5 MG/0.5 ML SYR IV PRN (12:47)
[2018-01-31] MEDS ORDERED: KETO10TA PO (14:23)
[2018-01-31] MEDS ORDERED: OXYC-57 PO (14:23)
--- NOTE | 2018-01-31 14:29 | Discharge Instructions ---
Discharge Instructions Date of Service Jan 31, 2018. Admission Reason for Admission: Right Colon Cancer Discharge Discharge Diagnosis / Problem: right colectomy Discharge Goals Goal(s): Decrease discomfort Activity Recommendations Activity Limitations: as noted below Lifting Limitations: no more than 10 pounds Shower/Bathe: no limitations Driving or Machine Use: when pain free . Instructions / Follow-Up Instructions / Follow-Up Dr. Pearson in 1-2 weeks as planned or call the office at [phone] to schedule if you have any questions Do not take Toradol for more than 5 days, do not take any additional ibuprofen or naproxen while you are taking Toradol Do not take additional Tylenol if you are taking Percocet You can shower today, the bandage over the drain wound is waterproof and can be removed in 1-2 days then cover daily until drainage stops Current Hospital Diet Patient's current hospital diet: Full Liquid Diet Discharge Diet Recommended Diet: Low Fat Diet Procedures Procedures Performed: Laparoscopic Extended Right Hemicolectomy and Repair of Umbilical Hernia Pending Studies Studies pending at discharge: no Medical Emergencies . Who to Call and When: Medical Emergencies: If at any time you feel your situation is an emergency, please call 911 immediately. . Non-Emergent Contact Non-Emergency issues call your: Surgeon Call Non-Emergent contact if: you have a fever, temperature is above 101.5, your pain is not controlled, wound has increased drainage, wound has increased redness, you have any medication questions . "Provider Documentation" section prepared by Ramon Mederos. .
[2018-01-31] MEDS ORDERED: OXYCODONE/ACETAMINOPHEN 5-325 TAB PO PRN (14:30)
--- NOTE | 2018-01-31 14:30 | Progress Note ---
Progress Note Date of Service Jan 31, 2018. Progress Note NICOLAS drain removed tolerating diet ok for discharge
[2018-01-31 14:39] VITALS: BP 147/76; PULSE 69; TEMP 36.9; O2SAT 97
--- NOTE | 2018-02-02 09:46 | DISCHARGE SUMMARY ---
PRIMARY DISCHARGE DIAGNOSIS: Colon cancer. SECONDARY DISCHARGE DIAGNOSES: 1. Hypertension. 2. Hyperlipidemia. 3. Arthritis. PROCEDURES PERFORMED: Laparoscopic extended right hemicolectomy and repair of umbilical hernia. HOSPITAL COURSE: The patient is a 72-year-old male with biopsy proven colon cancer, now taken to the operating room for extended right hemicolectomy. The procedure was well tolerated. He was transferred to the surgical floor. Siddiqui catheter was removed on postoperative day #1. He was started on clear liquids. Lovenox was used for DVT prophylaxis. His blood pressure remained stable on his home Lopressor. His pain control was marginal. He was changed to Dilaudid, which seemed to manage his pain better. He was continued on IV acetaminophen. His bowel function was somewhat slow. He was not taking much of the liquids. By day 4, he began having bowel movements. He was advanced to full liquids; however, had some nausea and small emesis later in the afternoon. His intake was limited over the next day, but his bowel function was improving. By postoperative day 6, he was able to tolerate a regular diet and oral analgesics. NICOLAS drain was removed. His incisions were dry. He was stable for discharge. DISCHARGE INSTRUCTIONS: Discharge home. Follow up with Dr. Pearson in 1-2 weeks. DISCHARGE MEDICATIONS: Percocet 1-2 tablets every 4 hours as needed. He was given a prescription for Toradol, which the outpatient pharmacy would not fill. He was therefore given Celebrex 200 mg b.i.d. x5 days. Continue home medications of aspirin 81 mg daily, Lipitor 20 mg at bedtime, Zestril 10 mg daily, and Lopressor 25 mg b.i.d. MTDD
== END 2018-01-31 15:28 | disposition home or self-care (01) | DRG 330 ==
LOC: C.ACU 07:41 → C.MSN 10:50 → ENRESERV 15:31
PROVIDERS: ADMIT Surgery; ATTEND Surgery
PROC: 0DBL4ZZ Excision of Transverse Colon, Percutaneous Endoscopic Approach (ICD-10-PCS; principal; 2018-01-26)
PROC: 0WQF3ZZ Repair Abdominal Wall, Percutaneous Approach (ICD-10-PCS; principal; 2018-01-26)
PROC: 0DTH4ZZ Resection of Cecum, Percutaneous Endoscopic Approach (ICD-10-PCS; principal; 2018-01-26)
PROC: 0DTK4ZZ Resection of Ascending Colon, Percutaneous Endoscopic Approach (ICD-10-PCS; principal; 2018-01-26)
DX: C18.9 Malignant neoplasm of colon, unspecified (principal); K91.89 Other postprocedural complications and disorders of digestive system; K42.9 Umbilical hernia without obstruction or gangrene; I10 Essential (primary) hypertension; E78.5 Hyperlipidemia, unspecified; Z79.82 Long term (current) use of aspirin; Z79.899 Other long term (current) drug therapy